=== PATIENT | female | born 1960 | race Caucasian/White ===

== ENCOUNTER 2017-11-15 06:53 | Emergency (ER) | payer OTHER ==
[2017-11-15 06:59] VITALS: TEMP 98.7
--- NOTE | 2017-11-15 07:17 | C.PDOC ---
History Of Present Illness 56 y/o female brought to ED by EMS for injury while at work prior to arrival, c/ o contusion to frontal head, and left hand pain. Patient denies vision change, headache, dizziness, nausea, vomiting, numbness or any other complaints at this time. Time Seen by Provider: 11/15/17 07:10 Chief Complaint (Nursing): Medical Clearance History Per: Patient History/Exam Limitations: no limitations Onset/Duration Of Symptoms: Hrs Current Symptoms Are (Timing): Still Present Past Medical History Reviewed: Historical Data, Nursing Documentation, Vital Signs Vital Signs: Last Vital Signs Temp 98.7 F 11/15/17 06:56 Pulse 70 11/15/17 08:12 Resp 16 11/15/17 08:12 BP 132/65 11/15/17 08:12 Pulse Ox 98 11/15/17 08:12 - Medical History PMH: No Chronic Diseases Surgical History: No Surg Hx Family History: States: No Known Family Hx - Social History Hx Tobacco Use: Yes Hx Alcohol Use: No Hx Substance Use: No - Immunization History Hx Tetanus Toxoid Vaccination: No Hx Influenza Vaccination: No Hx Pneumococcal Vaccination: No Review Of Systems Constitutional: Negative for: Fever, Chills Gastrointestinal: Negative for: Nausea, Vomiting Musculoskeletal: Positive for: Shoulder Pain, Arm Pain, Hand Pain Skin: Negative for: Rash Neurological: Negative for: Weakness, Numbness, Headache, Dizziness Physical Exam - Physical Exam Appears: Non-toxic, No Acute Distress Skin: Warm, Dry, No Rash Head: Atraumatic, Normacephalic Eye(s): bilateral: Normal Inspection Oral Mucosa: Moist Neck: Normal ROM, Supple Cardiovascular: Rhythm Regular Respiratory: Normal Breath Sounds, No Rales, No Rhonchi, No Wheezing Gastrointestinal/Abdominal: Soft, No Tenderness, No Guarding, No Rebound Extremity: Capillary Refill (<2 seconds), No Deformity, Other (mild abrasion to dorsal aspect of left hand) Pulses: Left Radial: Normal Neurological/Psych: Oriented x3, Normal Motor, Normal Sensation ED Course And Treatment O2 Sat by Pulse Oximetry: 97 (RA) Pulse Ox Interpretation: Normal Medical Decision Making Medical Decision Making: superficial contusion/abrasion to L dorsal hand and L shoulder no neck/head injury normal exam and VS's, radiology deferred with informed consent. Patient later requested xray of left shoulder, xray was negative NSAIDS/Ice Disposition Doctor Will See Patient In The: Office Counseled Patient/Family Regarding: Studies Performed, Diagnosis - Disposition Referrals: Non [facility] Provider, [Primary Care Provider] - Disposition: HOME/ ROUTINE Disposition Time: 07:16 Condition: GOOD Additional Instructions: ice packs to affected areas 1/2 hour per hour, nothing hot. Motrin/Advil 400-600 mg every 6 hours as needed no heavy lifting for 1 week Instructions: Contusion (DC) Forms: [employer] (Faroese), Work Excuse - Clinical Impression Clinical Impression: Medical assessment, Contusion - Scribe Statement The provider has reviewed the documentation as recorded by the Velasquezibdelaney Sinha All medical record entries made by the Velasquezibe were at my direction and personally dictated by me. I have reviewed the chart and agree that the record accurately reflects my personal performance of the history, physical exam, medical decision making, and the department course for this patient. I have also personally directed, reviewed, and agree with the discharge instructions and disposition.
[2017-11-15 08:14] VITALS: BP 132/65; PULSE 70; RESP 16
[2017-11-15 08:46] VITALS: O2SAT 97
--- NOTE | 2017-11-15 10:19 | RAD ---
Date of service: 11/15/2017 PROCEDURE: Radiographs of the Left Shoulder HISTORY: L shoulder contusion/fall COMPARISON: No prior. FINDINGS: BONES: Normal. No fracture. JOINTS: Normal. Glenohumeral and acromioclavicular joints preserved. No osteoarthritis. SOFT TISSUES: Normal. OTHER FINDINGS: None. IMPRESSION: Normal radiographs of the left shoulder. Concordant results with the preliminary interpretation rendered by the emergency department physician procedure.
== END 2017-11-15 08:12 | disposition home or self-care (01) ==
LOC: C.ER 06:53 → SUPCPDRO 06:53 → C.ER 08:12
DX: S00.93XA Contusion of unspecified part of head, initial encounter (principal); S60.512A Abrasion of left hand, initial encounter; S40.212A Abrasion of left shoulder, initial encounter; X58.XXXA Exposure to other specified factors, initial encounter; Y92.89 Other specified places as the place of occurrence of the external cause; Y99.0 Civilian activity done for income or pay